=== PATIENT | female | born 1975 | race African-American/Black ===

== ENCOUNTER 2021-02-05 13:59 | Emergency (ER) | payer SELFPAY ==
[~2021-02-05] VITALS: Ht 170.2 cm; Wt 82.0 kg
[2021-02-05 14:00] VITALS: BP 168/95
== END 2021-02-05 20:27 | disposition left against medical advice (07) ==
LOC: ER 13:59
DX: Z53.21 Procedure and treatment not carried out due to patient leaving prior to being seen by health care provider (principal); R07.2 Precordial pain; R10.13 Epigastric pain
CPT/HCPCS: 93005

== ENCOUNTER 2021-11-20 09:30 | Emergency (ER) | payer MEDICARE, MEDICAID ==
[~2021-11-20] VITALS: Ht 172.7 cm; Wt 79.0 kg
[2021-11-20 09:49] VITALS: BP 146/85
[2021-11-20 10:35] LABS: CLARITY URINE CLEAR (CLEAR); COLOR URINE YELLOW (YELLOW); KETONES URINE NEGATIVE (NEGATIVE); LEUKOCYTE ESTERASE URINE 1+ (NEGATIVE); NITRITE URINE NEGATIVE (NEGATIVE); OCCULT BLOOD URINE NEGATIVE (NEGATIVE); PH URINE 6.5 (4.5-8.0); PROTEIN URINE NEGATIVE (NEGATIVE); SPECIFIC GRAVITY URINE 1.018 (1.005-1.030); UROBILINOGEN URINE 0.2 E.U./dL (0.2-1.0)
[2021-11-20] MEDS ORDERED: CEFTRIAXONE SODIUM 500 MG/VIAL IM ONE (10:45)
[2021-11-20] MEDS ORDERED: METR-167 MT (11:37)
[2021-11-22 04:07] LABS: NEISSERIA GONORRHOEAE NAA Negative (Negative)
== END 2021-11-20 11:51 | disposition home or self-care (01) ==
LOC: ER 09:30
DX: N76.0 Acute vaginitis (principal); I10 Essential (primary) hypertension
CPT/HCPCS: 81003; 81025; 87210; 87491; 87591; 96372; 99284; J0696